=== PATIENT | male | born 1995 | race Hispanic/Latino ===

== ENCOUNTER 2018-12-25 09:43 | Emergency (ER) | payer OTHER ==
[~2018-12-25] VITALS: Ht 175.3 cm; Wt 71.6 kg
[2018-12-25] MEDS ORDERED: IBUPROFEN 800 MG TAB PO ONE (10:15)
[2018-12-25] MEDS ORDERED: ACETAMINOPHEN 325 MG TAB PO ONE (10:15)
[2018-12-25 10:45] LABS: INFLUENZA A AMPLIFICATION NEGATIVE (NEGATIVE); INFLUENZA B AMPLIFICATION NEGATIVE (NEGATIVE)
[2018-12-25] MEDS ORDERED: AUGM875T28 PO (11:12)
[2018-12-25] MEDS ORDERED: AUGMENTIN 875 MG TAB PO ONE (11:15)
[2018-12-25 11:21] VITALS: BP 118/65
== END 2018-12-25 11:27 | disposition home or self-care (01) ==
LOC: M ED 09:43
DX: J02.9 Acute pharyngitis, unspecified (principal)

== ENCOUNTER 2019-10-05 04:58 | Emergency (ER) | payer OTHER ==
[~2019-10-05] VITALS: Ht 175.3 cm; Wt 70.4 kg
[~2019-10-05 04:58] MED LIST: AUGM875T28 PO
[2019-10-05] MEDS ORDERED: ACETAMINOPHEN 325 MG TAB PO ONE (06:45)
[2019-10-05 07:06] LABS: HEMATOCRIT 44.6 % (42.0-52.0); HEMOGLOBIN 15.1 g/dl (13.5-17.5); MEAN CORPUSCULAR HEMOGLOBIN 29.5 pg (27.0-33.0); MEAN CORPUSCULAR HGB CONC 33.9 g/dl (32.0-36.5); MEAN CORPUSCULAR VOLUME 87.1 fl (80.0-96.0); PLATELET COUNT, AUTOMATED 219 10^3/uL (150-450); RED BLOOD COUNT 5.12 10^6/uL (4.30-6.10); WHITE BLOOD COUNT 14.9 10^3/uL (4.0-10.0)
--- NOTE | 2019-10-05 07:26 | REP ---
PA and lateral chest: There are no comparisons. The lung shipley are clear. The cardiac size is normal. The rio, mediastinum, and skeletal structures are unremarkable. Impression: Negative PA and lateral chest. Electronically Signed by Ezequiel Arias MD 10/05/2019 07:18 A
[2019-10-05 07:31] LABS: ALT/SGPT 24 U/L (12-78); BILIRUBIN,TOTAL 1.5 MG/DL (0.2-1.0); BLOOD UREA NITROGEN 12 MG/DL (7-18); CALCIUM LEVEL 8.6 MG/DL (8.5-10.1); CARBON DIOXIDE LEVEL 25 MEQ/L (21-32); CHLORIDE LEVEL 105 MEQ/L (98-107); CREATININE FOR GFR 1.18 MG/DL (0.70-1.30); GLOMERULAR FILTRATION RATE > 60.0 (>60); GLUCOSE, FASTING 92 MG/DL (70-100); POTASSIUM SERUM 4.1 MEQ/L (3.5-5.1); SODIUM LEVEL 138 MEQ/L (136-145)
[2019-10-05 07:32] LABS: ALBUMIN 4.1 GM/DL (3.2-5.2); TOTAL PROTEIN 7.4 GM/DL (6.4-8.2)
[2019-10-05 07:50] LABS: INFLUENZA A AMPLIFICATION NEGATIVE (NEGATIVE); INFLUENZA B AMPLIFICATION NEGATIVE (NEGATIVE)
[2019-10-05] MEDS ORDERED: CLEO300C2 PO (08:46)
[2019-10-05 09:01] VITALS: BP 113/59
== END 2019-10-05 09:06 | disposition home or self-care (01) ==
LOC: M ED 04:58
DX: J03.90 Acute tonsillitis, unspecified (principal)

== ENCOUNTER 2020-01-25 04:15 | Emergency (ER) | payer OTHER ==
[~2020-01-25] VITALS: Ht 177.8 cm; Wt 74.0 kg
[~2020-01-25 04:15] MED LIST changes: +CLEO300C2 PO
[2020-01-25 04:16] VITALS: BP 127/74
[2020-01-25] MEDS ORDERED: ACETAMINOPHEN TAB 650MG DOSE (2X325MG) PO ONE (05:00)
--- NOTE | 2020-01-25 05:22 | REP ---
Clinical: Chest pain . Comparison: 10/05/2019 . Findings: The mediastinum and cardiac silhouette are stable and within normal limits for portable technique. The lung shipley are clear without acute consolidation, effusion, or pneumothorax. Skeletal structures are intact. Impression: No acute cardiopulmonary process appreciated. Electronically Signed by Felix Doherty MD 01/25/2020 05:13 A
[2020-01-25] MEDS ORDERED: AMOX500C PO (05:44)
[2020-01-25] MEDS ORDERED: AMOXICILLIN 500 MG CAP PO ONE (05:45)
== END 2020-01-25 05:56 | disposition home or self-care (01) ==
LOC: M ED 04:15
DX: J03.90 Acute tonsillitis, unspecified (principal); Z87.828 Personal history of other (healed) physical injury and trauma; F17.210 Nicotine dependence, cigarettes, uncomplicated

== ENCOUNTER → 2020-03-28 | Emergency (ER) | payer OTHER ==
[~2020-03-28] MED LIST changes: +AMOX500C PO
== END | disposition left against medical advice (07) ==
LOC: M ED 23:49
DX: Z53.21 Procedure and treatment not carried out due to patient leaving prior to being seen by health care provider (principal)

== ENCOUNTER 2020-09-16 19:11 | Emergency (ER) | payer OTHER ==
[~2020-09-16] VITALS: Ht 177.8 cm; Wt 74.3 kg
[2020-09-16] MEDS ORDERED: CELE100C PO (19:21)
--- OUTSIDE RECORDS SUMMARY | 2020-09-16 19:21 | CCD ---
Author Author [facility] Organization [facility] Address Unknown Phone Unavailable Care Team Providers Care Deputy Register Of Deeds Name Role Phone Ozzie BOND MD Unavailable Unavailable Ozzie BOND MD Unavailable Unavailable Ozzie BOND MD Unavailable Unavailable Ozzie BOND MD Unavailable Unavailable Ozzie BOND MD Unavailable Unavailable Ozzie BOND MD Unavailable Unavailable Ozzie BOND MD Unavailable Unavailable Re-disclosure Warning The records that you are about to access may contain information from federally-assisted alcohol or drug abuse programs. If such information is present, then the following federally mandated warning applies: This information has been disclosed to you from records protected by federal confidentiality rules (42 CFR part 2). The federal rules prohibit you from making any further disclosure of this information unless further disclosure is expressly permitted by the written consent of the person to whom it pertains or as otherwise permitted by 42 CFR part 2. A general authorization for the release of medical or other information is NOT sufficient for this purpose. The Federal rules restrict any use of the information to criminally investigate or prosecute any alcohol or drug abuse patient.The records that you are about to access may contain highly sensitive health information, the redisclosure of which is protected by Article 27-F of the [facility] Public Health law. If you continue you may have access to information: Regarding HIV / AIDS; Provided by facilities licensed or operated by the [facility] Office of Mental Health; or Provided by the [facility] Office for People With Developmental Disabilities. If such information is present, then the following [facility] mandated warning applies: This information has been disclosed to you from confidential records which are protected by state law. State law prohibits you from making any further disclosure of this information without the specific written consent of the person to whom it pertains, or as otherwise permitted by law. Any unauthorized further disclosure in violation of state law may result in a fine or care home sentence or both. A general authorization for the release of medical or other information is NOT sufficient authorization for further disc losure. Allergies and Adverse Reactions Type Description Substance Reaction Status Data Source(s ) Drug Class NO KNOWN ALLERGIES NO KNOWN ALLERGIES [facility] Encounters Encounter Providers Location Date Indications Data Source(s ) Emergency Attender: TRAV BOND MD 07A-ERMADULT 2018 12:00:00 AM EST - 08/13/2019 07:07:00 AM EST Acute pharyngitis, unspecified [facility] Acute pharyngitis, unspecified Patient discharged. Medications Medication Brand Name Start Date Product Form Dose Route Admi nistrative Instructions Pharmacy Instructions Status Indications Reaction Description Data Source(s) sodium chloride 0.9 % bolus 2,000 mL 1282-7044-58 08/13/2019 05:45: 00 AM EST 2000 mL Intravenous completed 2,000 mL , Intravenous, Once, 08/13/19 at 0545, For 1 dose [facility] Medication administered onsite Amoxicillin 250 MG Oral Capsule amoxicillin (AMOXIL) c apsule 500 mg amoxicillin (AMOXIL) capsule 500 mg 08/13/2019 05:15:00 AM EST 500 mg Oral completed 500 mg, Oral, Once, 08/13/19 at 0515 , For 1 dose [facility] Medication administered onsite Ibuprofen 600 MG Oral Tablet ibuprofen (ADVIL,MOTRIN) tablet 600 mg ibuprofen (ADVIL,MOTRIN) tablet 600 mg 08/13/2019 05:15:00 AM EST 600 mg Oral completed 600 mg, Oral, Once, 08/13/19 at 0515, For 1 dose
Take with food.
[facility] Medication administered onsite Amoxicillin 500 MG Oral Capsule Amoxicillin 500 MG Ora l Capsule (AMOXIL) Amoxicillin 500 MG Oral Capsule (AMOXIL) 08/13/2019 12:00:00 AM EST 500 mg Oral active Take 1 capsule by [facility] Two Times Daily for 10 days [facility] Insurance Providers Payer name Policy type / Coverage type Policy ID Covered libertarian ID Covered libertarian's relationship to win Policy Win Plan Information [facility] ACTIVE DUTY [id number] [facility] [id number] Self [id number] [facility] [id number] Self [id number] Problems, Conditions, and Diagnoses Code Display Name Description Problem Type Effective Dates Data Source(s) J02.9 Acute pharyngitis, unspecified Acute pharyngitis, unsp ecified Diagnosis 08/13/2019 03:11:59 AM [facility] fever fever Diagnosis 08/13/2019 03:11:59 AM [facility] Surgeries/Procedures Procedure Description Date Indications Data Source(s) HETEROPHILE ANTIBODIES SCREEN MONONUCLEOSIS SCREEN STAT 08/13/2019 6:04 AM EST 08/13/2019 11:04:00 AM [facility] BLOOD COUNT COMPLETE AUTO&AUTO DIFRNTL WBC COUNT CBC AND DIFFER ENTIAL STAT 08/13/2019 6:04 AM EST 08/13/2019 11:04:00 AM [facility] BASIC METABOLIC PANEL CALCIUM TOTAL BASIC METABOLIC PANEL STAT 08/13/2019 6:04 AM EST 08/13/2019 11:04:00 AM [facility] RAPID STREP RAPID STREP STAT 08/13/2019 5:08 AM EST 08/13/2019 10:08:00 AM [facility] Results ID Date Data Source [id number] 08/16/2019 12:33:17 PM [facility] Name Value Range Interpretation Code Description Data Dayana rce(s) Supporting Document(s) ED Provider Note [facility] [id number] lbm [file] ENVIRONMENTAL CONFLICT [id number] [file] [id number] ID Date Data Source [id number] 08/13/2019 06:41:23 AM [facility] Name Value Range Interpretation Code Description Data Dayana rce(s) Supporting Document(s) Leukocytes [#/volume] in Blood by Automated count 13.3 10*3/uL 4-10 H [facility] Erythrocytes [#/volume] in Blood by Automated count 5.24 10*6/uL 4.6- 6.1 [facility] Hemoglobin [Mass/volume] in Blood 15.4 g/dL 13.5-18 [facility] Hematocrit [Volume Fraction] of Blood by Automated count 45.9 % 4 1-53 [facility] Erythrocyte mean corpuscular volume [Entitic volume] by Auto mated count 87.6 fL 80-96 [facility] Erythrocyte mean corpuscular hemoglobin [Entitic mass] by Automated count 29.5 pg 27-33 [facility] Erythrocyte mean corpuscular hemoglobin concentration [Mass/volume] by Automated count 33.6 g/dL [facility].0-[facility] width [Ratio] by Automated count 13.7 % 11.5-14.5 [facility] Platelets [#/volume] in Blood by Automated count 231 10*3/uL 150-400 [facility] Differential cell count method - Blood [facility] Neutrophils/100 leukocytes in Blood by Automated count 77 % [facility] Lymphocytes/100 leukocytes in Blood by Automated count 11 % [facility] Monocytes/100 leukocytes in Blood by Automated count 11 % [facility] Eosinophils/100 leukocytes in Blood by Automated count 0 % [facility] Basophils/100 leukocytes in Blood by Automated count 1 % [facility] Neutrophils [#/volume] in Blood by Automated count 10.23 10*3/uL 1.8- 7.0 [facility] Lymphocytes [#/volume] in Blood by Automated count 1.50 10*3/uL 1.2-4 .0 [facility] Monocytes [#/volume] in Blood by Automated count 1.50 10*3/uL 0-0.8 H [facility] Eosinophils [#/volume] in Blood by Automated count 0.03 10*3/uL 0-0.5 [facility] Basophils [#/volume] in Blood by Automated count 0.07 10*3/uL 0-0.2 [facility] Nucleated erythrocytes/100 leukocytes [Ratio] in Blood by Automated count 0 /100{WBCs} 0-0 [facility] ID Date Data Source [id number] 08/13/2019 06:45:37 AM [facility] Name Value Range Interpretation Code Description Data Dayana rce(s) Supporting Document(s) Heterophile Ab [Presence] in Serum Negative [facility] ID Date Data Source [id number] 08/13/2019 06:52:50 AM [facility] Name Value Range Interpretation Code Description Data Dayana rce(s) Supporting Document(s) Bicarbonate [Moles/volume] in Serum 24 mmol/L 22-29 [facility] Chloride [Moles/volume] in Serum or Plasma 98 mmol/L 98-107 [facility] Creatinine [Mass/volume] in Serum or Plasma 0.97 mg/dL 0.70-1.20 [facility] Glucose [Mass/volume] in Serum or Plasma 102 mg/dL 70-140 [facility] Potassium [Moles/volume] in Serum or Plasma 4.2 mmol/L 3.4-5.1 [facility] Sodium [Moles/volume] in Serum or Plasma 135 mmol/L 136-145 L [facility] Urea nitrogen [Mass/volume] in Serum or Plasma 12 mg/dL 6-20 [facility] Anion gap 3 in Serum or Plasma 13 mmol/L 8-15 [facility] Osmolality of Serum or Plasma by calculation 280 mosm/kg 275-300 [facility] Creatinine/Urea nitrogen [Mass Ratio] in Serum or Plasma 13 [facility] Calcium [Mass/volume] in Serum or Plasma 9.3 mg/dL 8.6-10.0 [facility] Glomerular filtration rate/1.73 sq M pre dicted among non-blacks [Volume Rate/Area] in Serum or Plasma by Creatinine-based formula (MDRD) >6 0 [facility] Glomerular filtration rate/1.73 sq M pre dicted among blacks [Volume Rate/Area] in Serum or Plasma by Creatinine-based formula (MDRD) >60 [facility] ID Date Data Source [id number] 08/15/2019 11:09:54 AM [facility] Name Value Range Interpretation Code Description Data Dayana rce(s) Supporting Document(s) Kel Ferrari virus capsid IgG Ab [Units/volume] in Ser um by Immunoassay 4.09 {ISR} <0.91 H [facility] Positive Kel Ferrari virus nuclear IgG Ab [Units/volume] in Se rum by Immunoassay 3.12 {ISR} <0.91 H [facility] Positive Kel Ferrari virus capsid IgM Ab [Units/volume] in Ser um by Immunoassay 0.09 {ISR} <0.91 [facility] Negative ID Date Data Source [id number] 08/15/2019 08:31:11 AM [facility] Service Cmnt XXX-Imp : Microorganism XXX Cult : No beta hemolytic Streptococcus group A isolated Name Value Range Interpretation Code Description Data Dayana rce(s) Supporting Document(s) ID Date Data Source [id number] 08/13/2019 05:33:31 AM [facility] Service Cmnt XXX-Imp : Microorganism XXX Cult : Negative for Streptococcus Group A antigen by immunochromatographic assay, throat culture pending. Name Value Range Interpretation Code Description Data Dayana rce(s) Supporting Document(s) Procedure Social History Code Duration Value Status Description Data Source(s ) Smoking 08/13/2019 12:00:00 AM EST Unknown if ever smoked comp leted Unknown if ever smoked [facility] Vital Signs ID Date Data Source [id number] 08/18/2019 10:10:45 AM [facility] Name Value Range Interpretation Code Description Data Source(s) WEIGHT RECORDED 161 lb 161 lb [facility] Body height Measured 70 in 70 in [facility] Patient Treatment Plan of Care Planned Activity Planned Date Details Description Data Source (s) Amoxicillin 500 MG Oral Capsule 08/13/2019 12:00:00 AM [facility]
--- OUTSIDE RECORDS SUMMARY | 2020-09-16 20:48 | CCD ---
Author Author [facility] Organization [facility] Address Unknown Phone Unavailable Care Team Providers Care Projector Operator Name Role Phone Ozzie BOND MD Unavailable [...] is protected by Article 27-F of the [facility] Public Health law. If you continue you may have access to information: Regarding HIV / AIDS; Provided by facilities licensed or operated by the [facility] Office of Mental Health; or Provided by the [facility] Office for People With Developmental Disabilities. If such information is present, then the following [facility] mandated warning applies: This information has been [...] law may result in a fine or residential sentence or both. A general authorization for the release of medical or other information is NOT sufficient authorization for further disc losure. Allergies and Adverse Reactions Type Description Substance Reaction Status Data Source(s ) Drug Class NO KNOWN ALLERGIES NO KNOWN ALLERGIES [facility] Encounters Encounter Providers Location Date Indications Data Source(s ) Emergency Attender: TRAV BOND MD 07A-ERMADULT 2018 12:00:00 AM EST - 08/13/2019 07:07:00 AM EST Acute pharyngitis, unspecified [facility] Acute pharyngitis, unspecified Patient discharged. Medications Medication Brand Name Start Date Product Form Dose Route Admi nistrative Instructions Pharmacy Instructions Status Indications Reaction Description Data Source(s) sodium chloride 0.9 % bolus 2,000 mL [id number] 08/13/2019 05:45: 00 AM EST 2000 mL Intravenous completed 2,000 mL , Intravenous, Once, 08/13/19 at 0545, For 1 dose [facility] Medication administered onsite Amoxicillin 250 MG Oral Capsule amoxicillin (AMOXIL) c apsule 500 mg amoxicillin (AMOXIL) capsule 500 mg 08/13/2019 05:15:00 AM EST 500 mg Oral completed 500 mg, Oral, Once, 08/13/19 at 0515 , For 1 dose [facility] Medication administered onsite Ibuprofen 600 MG Oral Tablet ibuprofen (ADVIL,MOTRIN) tablet 600 mg ibuprofen (ADVIL,MOTRIN) tablet 600 mg 08/13/2019 05:15:00 AM EST 600 mg Oral completed 600 mg, Oral, Once, 08/13/19 at 0515, For 1 dose
Take with food.
[facility] Medication administered onsite Amoxicillin 500 MG Oral Capsule Amoxicillin 500 MG Ora l Capsule (AMOXIL) Amoxicillin 500 MG Oral Capsule (AMOXIL) 08/13/2019 12:00:00 AM EST 500 mg Oral active Take 1 capsule by [facility] Two Times Daily for 10 days [facility] Insurance Providers Payer name Policy type / Coverage type Policy ID Covered alliance party ID Covered alliance party's relationship to win Policy Win Plan Information [facility] ACTIVE DUTY [id number] [facility] [id number] Self [id number] [facility] [id number] Self [id number] Problems, Conditions, and Diagnoses Code Display Name Description Problem Type Effective Dates Data Source(s) J02.9 Acute pharyngitis, unspecified Acute pharyngitis, unsp ecified Diagnosis 08/13/2019 03:11:59 AM [facility] fever fever Diagnosis 08/13/2019 03:11:59 AM [facility] Surgeries/Procedures Procedure Description Date Indications Data Source(s) HETEROPHILE ANTIBODIES SCREEN MONONUCLEOSIS SCREEN STAT 08/13/2019 6:04 AM EST 08/13/2019 11:04:00 AM [facility] BLOOD COUNT COMPLETE AUTO&AUTO DIFRNTL WBC COUNT CBC AND DIFFER ENTIAL STAT 08/13/2019 6:04 AM EST 08/13/2019 11:04:00 AM [facility] BASIC METABOLIC PANEL CALCIUM TOTAL BASIC METABOLIC PANEL STAT 08/13/2019 6:04 AM EST 08/13/2019 11:04:00 AM [facility] RAPID STREP RAPID STREP STAT 08/13/2019 5:08 AM EST 08/13/2019 10:08:00 AM [facility] Results ID Date Data Source [id number] 08/16/2019 12:33:17 PM [facility] Name Value Range Interpretation Code Description Data Dayana rce(s) Supporting Document(s) ED Provider Note [facility] [id number] lbm [file] MEDICAL BILLING [id number] [file] [place] [file] [id number] ID Date Data Source [id number] 08/13/2019 06:41:23 AM EST [facility] Name Value Range Interpretation Code Description Data Dayana rce(s) Supporting Document(s) Leukocytes [#/volume] in Blood by Automated count 13.3 10*3/uL 4-10 H [facility] Erythrocytes [#/volume] in Blood by Automated count 5.24 10*6/uL 4.6- 6.1 [facility] Hemoglobin [Mass/volume] in Blood 15.4 g/dL 13.5-18 [facility] Hematocrit [Volume Fraction] of Blood by Automated count 45.9 % 4 1-53 [facility] Erythrocyte mean corpuscular volume [Entitic volume] by Auto mated count 87.6 fL 80-96 [facility] Erythrocyte mean corpuscular hemoglobin [Entitic mass] by Automated count 29.5 pg 27-33 [facility] Erythrocyte mean corpuscular hemoglobin concentration [Mass/volume] by Automated count 33.6 g/dL 32.0-36.[facility] width [Ratio] by Automated count 13.7 % 11.5-14.5 [facility] Platelets [#/volume] in Blood by Automated count 231 10*3/uL 150-400 [facility] Differential cell count method - Blood [facility] Neutrophils/100 leukocytes in Blood by Automated count 77 % [facility] Lymphocytes/100 leukocytes in Blood by Automated count 11 % [facility] Monocytes/100 leukocytes in Blood by Automated count 11 % [facility] Eosinophils/100 leukocytes in Blood by Automated count 0 % [facility] Basophils/100 leukocytes in Blood by Automated count 1 % [facility] Neutrophils [#/volume] in Blood by Automated count 10.23 10*3/uL 1.8- 7.0 [facility] Lymphocytes [#/volume] in Blood by Automated count 1.50 10*3/uL 1.2-4 .0 [facility] Monocytes [#/volume] in Blood by Automated count 1.50 10*3/uL 0-0.8 H [facility] Eosinophils [#/volume] in Blood by Automated count 0.03 10*3/uL 0-0.5 [facility] Basophils [#/volume] in Blood by Automated count 0.07 10*3/uL 0-0.2 [facility] Nucleated erythrocytes/100 leukocytes [Ratio] in Blood by Automated count 0 /100{WBCs} 0-0 [facility] ID Date Data Source [id number] 08/13/2019 06:45:37 AM [facility] Name Value Range Interpretation Code Description Data Dayana rce(s) Supporting Document(s) Heterophile Ab [Presence] in Serum Negative [facility] ID Date Data Source [id number] 08/13/2019 06:52:50 AM [facility] Name Value Range Interpretation Code Description Data Dayana rce(s) Supporting Document(s) Bicarbonate [Moles/volume] in Serum 24 mmol/L 22-29 [facility] Chloride [Moles/volume] in Serum or Plasma 98 mmol/L 98-107 [facility] Creatinine [Mass/volume] in Serum or Plasma 0.97 mg/dL 0.70-1.20 [facility] Glucose [Mass/volume] in Serum or Plasma 102 mg/dL 70-140 [facility] Potassium [Moles/volume] in Serum or Plasma 4.2 mmol/L 3.4-5.1 [facility] Sodium [Moles/volume] in Serum or Plasma 135 mmol/L 136-145 L [facility] Urea nitrogen [Mass/volume] in Serum or Plasma 12 mg/dL 6-20 [facility] Anion gap 3 in Serum or Plasma 13 mmol/L 8-15 [facility] Osmolality of Serum or Plasma by calculation 280 mosm/kg 275-300 [facility] Creatinine/Urea nitrogen [Mass Ratio] in Serum or Plasma 13 [facility] Calcium [Mass/volume] in Serum or Plasma 9.3 mg/dL 8.6-10.0 [facility] Glomerular filtration rate/1.73 sq M pre dicted among non-blacks [Volume Rate/Area] in Serum or Plasma by Creatinine-based formula (MDRD) >6 0 [facility] Glomerular filtration rate/1.73 sq M pre dicted among blacks [Volume Rate/Area] in Serum or Plasma by Creatinine-based formula (MDRD) >60 [facility] ID Date Data Source [id number] 08/15/2019 11:09:54 AM [facility] Name Value Range Interpretation Code Description Data Dayana rce(s) Supporting Document(s) Kel Ferrari virus capsid IgG Ab [Units/volume] in Ser um by Immunoassay 4.09 {ISR} <0.91 H [facility] Positive Kel Ferrari virus nuclear IgG Ab [Units/volume] in Se rum by Immunoassay 3.12 {ISR} <0.91 H [facility] Positive Kel Ferrari virus capsid IgM Ab [Units/volume] in Ser um by Immunoassay 0.09 {ISR} <0.91 [facility] Negative ID Date Data Source [id number] 08/15/2019 08:31:11 AM [facility] Service Cmnt XXX-Imp : Microorganism XXX Cult : No beta hemolytic Streptococcus group A isolated Name Value Range Interpretation Code Description Data Dayana rce(s) Supporting Document(s) ID Date Data Source [id number] 08/13/2019 05:33:31 AM [facility] Service Cmnt XXX-Imp : Microorganism XXX Cult : Negative for Streptococcus Group A antigen by immunochromatographic assay, throat culture pending. Name Value Range Interpretation Code Description Data Dayana rce(s) Supporting Document(s) Procedure Social History Code Duration Value Status Description Data Source(s ) Smoking 08/13/2019 12:00:00 AM EST Unknown if ever smoked comp leted Unknown if ever smoked [facility] Vital Signs ID Date Data Source [id number] 08/18/2019 10:10:45 AM [facility] Name Value Range Interpretation Code Description Data Source(s) WEIGHT RECORDED [address] [facility] Body height Measured 70 in 70 in [facility] Patient Treatment Plan of Care Planned Activity Planned Date Details Description Data Source (s) Amoxicillin 500 MG Oral Capsule 08/13/2019 12:00:00 AM [facility]
[2020-09-16 20:56] LABS: BASO # 0.1 10^3/uL (0.0-0.2); BASO % 0.6 % (0.0-1.0); EOS # 0.1 10^3/uL (0.0-0.5); EOS % 0.8 % (0.0-3.0); HEMATOCRIT 46.2 % (42.0-52.0); HEMOGLOBIN 15.2 g/dl (13.5-17.5); LYMPH # 1.9 10^3/uL (1.5-5.0); LYMPH % 22.4 % (24.0-44.0); MEAN CORPUSCULAR HEMOGLOBIN 28.5 pg (27.0-33.0); MEAN CORPUSCULAR HGB CONC 32.9 g/dl (32.0-36.5); MEAN CORPUSCULAR VOLUME 86.5 fl (80.0-96.0); MONO # 0.6 10^3/uL (0.0-0.8); MONO % 7.4 % (0.0-5.0); NEUTROPHILS # 5.9 10^3/uL (1.5-8.5); NEUTROPHILS % 68.4 % (36.0-66.0); PLATELET COUNT, AUTOMATED 269 10^3/uL (150-450); RED BLOOD COUNT 5.34 10^6/uL (4.30-6.10); WHITE BLOOD COUNT 8.6 10^3/uL (4.0-10.0)
[2020-09-16 21:26] LABS: BILIRUBIN,DIRECT 0.1 MG/DL (0.0-0.2); BILIRUBIN,TOTAL 0.4 MG/DL (0.2-1.0); TOTAL PROTEIN 7.5 GM/DL (6.4-8.2)
--- NOTE | 2020-09-16 22:05 | REPVR ---
PROCEDURE INFORMATION: Exam: CT Abdomen And Pelvis Without Contrast Exam date and time: 09/16/2020 9:12 PM Age: 25 years old Clinical indication: Abdominal pain; Prior surgery; Additional info: Llq pain TECHNIQUE: Imaging protocol: Computed tomography of the abdomen and pelvis without contrast. Radiation optimization: All CT scans at this facility use at least one of these dose optimization techniques: automated exposure control; mA and/or kV adjustment per patient size (includes targeted exams where dose is matched to clinical indication); or iterative reconstruction. COMPARISON: No relevant prior studies available. FINDINGS: Liver: Normal. No mass. Gallbladder and bile ducts: Normal. No calcified stones. No ductal dilation. Pancreas: Normal. No ductal dilation. Spleen: Normal. No splenomegaly. Adrenal glands: Normal. No mass. Kidneys and ureters: Normal. No hydronephrosis. Stomach and bowel: There is a 16 mm lobulated fat lobule along the distal descending colon with surrounding soft tissue stranding, typical of epiploic appendagitis (image 99, series 201). Colon and small bowel are otherwise unremarkable. Appendix: No evidence of appendicitis. Intraperitoneal space: Unremarkable. No free air. No significant fluid collection. Vasculature: Unremarkable. No abdominal aortic aneurysm. Lymph nodes: Unremarkable. No enlarged lymph nodes. Urinary bladder: Unremarkable as visualized. Reproductive: Unremarkable as visualized. Bones/joints: Unremarkable. No acute fracture. Soft tissues: Unremarkable. IMPRESSION: Epiplicoic aggendagitis of the distal descending colon. Electronically signed by: Darius Caldera On 09/16/2020 22:05:05 PM
[2020-09-16] MEDS ORDERED: COLA100C5 PO (22:37)
[2020-09-16] MEDS ORDERED: IBUP-1022 PO (22:37)
[2020-09-16 22:53] VITALS: BP 119/70
[2020-09-16 22:58] LABS: RSV AMPLIFICATION NEGATIVE (NEGATIVE)
== END 2020-09-16 22:57 | disposition home or self-care (01) ==
LOC: M ED 19:11
DX: K38.8 Other specified diseases of appendix (principal); F17.200 Nicotine dependence, unspecified, uncomplicated; Z79.899 Other long term (current) drug therapy

== ENCOUNTER → 2020-12-06 | Outpatient (CLI) | payer OTHER ==
[~2020-12-06] MED LIST changes: +CELE100C PO; +COLA100C5 PO; +IBUP-1022 PO
--- NOTE | 2020-12-10 16:44 | SLEEPCENT ---
NOCTURNAL POLYSOMNOGRAPHY DATE: 12/06/2020 ORDERED BY: Benigno Barron M.D. Nocturnal polysomnography was performed for evaluation of sleep physiology in this patient with a history of excessive somnolence and morning headaches. 6 hours and 54 minutes of data were reviewed. There were 383 minutes of sleep identified. Sleep latency was normal at 9 minutes. REM latency was normal at 69 minutes. Sleep architecture was good with three REM cycles. Overall sleep efficiency was 93.8%. The electrocardiogram showed a sinus rhythm with an average heart rate of 52 beats per minute; rate range 40 to 76. EEG showed normal waveforms for wake and sleep. There were only 7 respiratory events identified of 10 seconds in duration or greater for an apnea-hypopnea index within normal limits at 1.1. The events that were seen were associated with REM. Snoring was, however, noted over the course of the study. Arousals from respiratory events occurred when arousals from snoring were included occurred 0.9 times per hour. There was some minor limb activity. No trains of events. Limb movement arousal index of 2 and snoring was noted over the entire study. IMPRESSION: Normal nocturnal polysomnography with snoring.
== END ==
LOC: M SLEEP 20:00
PROVIDERS: ATTEND Internal Medicine Pulmonary Disease
DX: R40.0 Somnolence (principal)

== ENCOUNTER → 2021-01-01 | Outpatient (CLI) | payer OTHER ==
[~2021-01-01] MED LIST changes: +HYDR50CA2 PO; +OXCA150T21 PO
--- NOTE | 2021-01-04 10:36 | SLEEPMSLT ---
DATE: 01/01/2021 ORDERED BY: Benigno Barron MD Nocturnal polysomnography was performed followed by multiple sleep latency testing for evaluation of this patient with excessive somnolence, fatigue, and snoring. For the night portion of the study, 7 hours and 26 minutes of data were reviewed. There were 398.5 minutes of sleep identified. Sleep latency was normal at 20.5 minutes. REM latency was normal at 80.5 minutes. Sleep architecture was good. There were three REM cycles noted. Overall sleep efficiency was 90.4%. The electrocardiogram showed a sinus rhythm with an average heart rate of 56 beats per minute, rate range 40-70. EEG showed normal waveforms for wake and sleep stages, there were no focal events appreciated. There was only one respiratory event identified of 10 seconds in duration or greater for an apnea hypopnea index of 0.3. Snoring was appreciated over the course of the study. Respiratory related arousals occurred only 1.2 times per hour and there were no significant oxygen desaturations below 90%. There was some activity in the limb leads, one train of 30 events with limb movement arousal index within normal limits at 3.3. Following night testing, multiple sleep latency testing was performed and nap opportunities were offered at 2 hour intervals. Sleep was appreciated on four of the four nap opportunities. The patient's mean sleep latency was 3.3 minutes. REM sleep was appreciated on two of the four nap opportunities. IMPRESSIONS: Normal nocturnal polysomnography with pathologic sleep latency of 3.3 minutes and two sleep onset REM periods is supportive of a diagnosis of narcolepsy. COMMENT: Urine toxicology studies were not available at the time of this dictation.
== END ==
LOC: M SLEEP 20:00
PROVIDERS: ATTEND Internal Medicine Pulmonary Disease
DX: R06.83 Snoring (principal); R40.0 Somnolence

== ENCOUNTER 2021-01-09 14:50 | Emergency (ER) | payer OTHER ==
[~2021-01-09] VITALS: Ht 177.8 cm; Wt 68.2 kg
[~2021-01-09 14:50] MED LIST changes: -HYDR50CA2 PO; -OXCA150T21 PO
[2021-01-09] MEDS ORDERED: HYDR50CA2 PO (16:14)
[2021-01-09] MEDS ORDERED: OXCA150T21 PO (16:14)
--- NOTE | 2021-01-09 16:45 | REP ---
INDICATION: pain with inhalation. COMPARISON: None. TECHNIQUE: PA and lateral FINDINGS: The superior mediastinal structures are midline. The cardiac silhouette is unremarkable in size, shape, and position. The diaphragmatic surfaces of the lungs are regular, and the costophrenic angles are clear. The pulmonary shipley are clear. The imaged osseous structures are intact. IMPRESSION: There is no acute cardiopulmonary disease. <Electronically signed by Scotty Rosenberg > 01/09/21 [id number]
[2021-01-09] MEDS ORDERED: NS 1,000 ML IV ONE (16:55)
[2021-01-09 17:23] LABS: BASO # 0.1 10^3/uL (0.0-0.2); BASO % 0.7 % (0.0-1.0); EOS # 0.1 10^3/uL (0.0-0.5); HEMATOCRIT 41.7 % (42.0-52.0); HEMOGLOBIN 14.2 g/dl (13.5-17.5); LYMPH # 1.5 10^3/uL (1.5-5.0); LYMPH % 17.6 % (24.0-44.0); MEAN CORPUSCULAR HEMOGLOBIN 29.2 pg (27.0-33.0); MEAN CORPUSCULAR HGB CONC 34.1 g/dl (32.0-36.5); MEAN CORPUSCULAR VOLUME 85.8 fl (80.0-96.0); MONO # 0.8 10^3/uL (0.0-0.8); MONO % 9.4 % (2.0-8.0); NEUTROPHILS # 5.9 10^3/uL (1.5-8.5); NEUTROPHILS % 70.8 % (36.0-66.0); PLATELET COUNT, AUTOMATED 237 10^3/uL (150-450); RED BLOOD COUNT 4.86 10^6/uL (4.30-6.10); WHITE BLOOD COUNT 8.4 10^3/uL (4.0-10.0)
[2021-01-09 17:47] LABS: AMPHETAMINES LEVEL URINE NEGATIVE (NEGATIVE); BARBITURATES URINE NEGATIVE (NEGATIVE); BENZODIAZEPINES URINE NEGATIVE (NEGATIVE); CANNABINOIDS URINE NEGATIVE (NEGATIVE); COCAINE METABOLITE URINE NEGATIVE (NEGATIVE); METHADONE URINE NEGATIVE (NEGATIVE); OPIATES URINE NEGATIVE (NEGATIVE); PHENCYCLIDINE URINE NEGATIVE (NEGATIVE)
[2021-01-09 17:51] LABS: ALT/SGPT 15 U/L (12-78); BILIRUBIN,DIRECT 0.3 MG/DL (0.0-0.2); BILIRUBIN,TOTAL 0.7 MG/DL (0.2-1.0); CK-MB VALUE MASS < 1.0 NG/ML (<3.6); CPK CREATINE PHOSPHOKINASE 75 U/L (39-308); LIPASE 66 U/L (73-393); MB/CK RELATIVE INDEX 1.33 (< OR =4); TROPONIN I < 0.02 NG/ML (< 0.10)
--- NOTE | 2021-01-09 18:21 | REPVR ---
PROCEDURE INFORMATION: Exam: CT Abdomen And Pelvis Without Contrast Exam date and time: 01/09/2021 6:01 PM Age: 25 years old Clinical indication: Abdominal pain; Additional info: Bilat flank pain, elevated CR 3.0 TECHNIQUE: Imaging protocol: Computed tomography of the abdomen and pelvis without contrast. Radiation optimization: All CT scans at this facility use at least one of these dose optimization techniques: automated exposure control; mA and/or kV adjustment per patient size (includes targeted exams where dose is matched to clinical indication); or iterative reconstruction. COMPARISON: CT ABD PELVIS W/O CONTRAST 09/16/2020 9:11 PM FINDINGS: Lungs: No suspicious mass or airspace process in the visualized lung bases. Liver: Noncontrast liver shows no obvious lesion. Gallbladder and bile ducts: Gallbladder is present and shows no evidence of gallstone. Pancreas: Noncontrast pancreas shows no obvious mass or adjacent fluid. Spleen: Noncontrast spleen shows no obvious focal deformity. Adrenal glands: Adrenal glands are normal in appearance. Kidneys and ureters: Noncontrast kidneys and ureters show no stone or obstructive change. Stomach and bowel: No evidence of small bowel obstruction. Terminal ileum has normal appearance. No evidence of acute diverticulitis. Appendix: Normal caliber appendix is identified, with no adjacent inflammation. Intraperitoneal space: No pneumoperitoneum. Vasculature: No aortic aneurysm. Lymph nodes: No enlarged lymph nodes. Urinary bladder: Urinary bladder appears normal. Reproductive: No overt enlargement of the prostate gland. Bones/joints: Bony structures show no acute fracture or destructive process. Soft tissues: No effacement of normal fat planes in the ischiorectal fossa. No concerning focal abnormality of the extra-abdominal and pelvic soft tissues. Other findings: Limited evaluation without enteric or IV contrast. IMPRESSION: No evidence of renal stone or obstruction. No explanation for flank pain. Electronically signed by: Iván Fofana On 01/09/2021 18:20:58 PM
[2021-01-09 19:04] VITALS: BP 125/76
--- NOTE | 2021-01-10 02:45 | ECGEPIP ---
[facility] - ED Test Date: 2021-01-09 Pat Name: ELENA WALLACE Department: Room: - Gender: Male Irrigator Overhead: URSULA : 1995 Requested By: MELISSA Styles PA-C Order Number: [id number] Reading MD: Moisés Israel Measurements Intervals [place] Rate: 53 P: 62 PA: 134 QRS: 14 QRSD: 90 T: 37 QT: 390 QTc: 365 Interpretive Statements Sinus bradycardia NO PRIORS FOR COMPARISON Electronically Signed on 01-10-2021 2:44:51 EDT by Moisés Israel
== END 2021-01-09 19:06 | disposition home or self-care (01) ==
LOC: M ED 14:50
DX: R10.9 Unspecified abdominal pain (principal); R11.0 Nausea; R19.7 Diarrhea, unspecified; R79.89 Other specified abnormal findings of blood chemistry; R94.31 Abnormal electrocardiogram [ECG] [EKG]; F31.9 Bipolar disorder, unspecified; Z79.899 Other long term (current) drug therapy

== ENCOUNTER → 2021-02-05 | Outpatient (REF) ==
[~2021-02-05] MED LIST changes: +HYDR50CA2 PO; +OXCA150T21 PO
--- NOTE | 2021-02-05 13:49 | REPPI ---
INDICATION: ARTHRITIS, PULMONARY CONDITION COMPARISON: 01/09/2021 TECHNIQUE: PA and lateral. FINDINGS: The mediastinum and cardiac silhouette are normal. The lung shipley are clear and without acute consolidation, effusion, or pneumothorax. The skeletal structures are intact and normal. IMPRESSION: No acute cardiopulmonary process. <Electronically signed by Felix Doherty > 02/05/21 [id number]
--- NOTE | 2021-02-05 14:17 | REPPI ---
INDICATION: ARTHRITIS, PULMONARY CONDITION COMPARISON: None. TECHNIQUE: AP, lateral, and sunrise views of the right and left knee. FINDINGS: The osseous structures and joint spaces are intact and normal. There is no evidence for acute fracture or dislocation. No joint effusion is appreciated. Surrounding soft tissues are unremarkable. No subcutaneous emphysema or radiodense foreign body. IMPRESSION: Normal bilateral knee examination. No acute fracture or dislocation. <Electronically signed by Felix Doherty > 02/05/21 [id number]
== END ==
LOC: M PLAIMG 10:15
PROVIDERS: ATTEND Internal Medicine
DX: M25.562 Pain in left knee (principal); M25.561 Pain in right knee

== ENCOUNTER 2022-12-12 03:00 | Inpatient (IN) | payer OTHER ==
[~2022-12-12] VITALS: Ht 177.8 cm; Wt 68.4 kg
[2022-12-12] MEDS ORDERED: QUET1TAB17 PO (03:19)
[2022-12-12] MEDS ORDERED: LAMO200T3 PO (03:19)
[2022-12-12 03:48] LABS: HEMATOCRIT 46.8 % (42.0-52.0); HEMOGLOBIN 15.9 g/dl (13.5-17.5); MEAN CORPUSCULAR HEMOGLOBIN 29.9 pg (27.0-33.0); MEAN CORPUSCULAR VOLUME 88.1 fl (80.0-96.0); PLATELET COUNT, AUTOMATED 196 10^3/uL (150-450); RED BLOOD COUNT 5.31 10^6/uL (4.30-6.10); WHITE BLOOD COUNT 11.1 10^3/uL (4.0-10.0)
[2022-12-12 04:16] LABS: LIPASE 23 U/L (12-53)
[2022-12-12 04:19] LABS: ALBUMIN 4.1 G/DL (3.2-5.2); ALKALINE PHOSPHATASE 105 U/L (46-116); ALT/SGPT 25 U/L (7.0-40); AST/SGOT 14 U/L (<34); BILIRUBIN,DIRECT 0.3 MG/DL (<0.4); BILIRUBIN,TOTAL 0.7 MG/DL (0.3-1.2); BLOOD UREA NITROGEN 12 MG/DL (9-23); CALCIUM LEVEL 9.2 MG/DL (8.5-10.1); CARBON DIOXIDE LEVEL 25 MMOL/L (20-31); CHLORIDE LEVEL 103 MMOL/L (98-107); CREATININE FOR GFR 0.98 MG/DL (0.70-1.30); GLOMERULAR FILTRATION RATE > 60.0 (>60); GLUCOSE, FASTING 100 MG/DL (60-100); SODIUM LEVEL 138 MMOL/L (136-145)
[2022-12-12 04:35] LABS: EOSINOPHILS 3 % (0-3); LYMPHOCYTES 11 % (16-44); METAMYELOCYTES 1 % (0-0); MONOCYTES 11 % (0-5); NEUTROPHILS 66 % (28-66)
[2022-12-12 04:36] LABS: NUCLEATED RED BLOOD CELL 0 % (0-0); PLATELET ESTIMATE NORMAL (NORMAL)
[2022-12-12] MEDS ORDERED: ONDANSETRON 4MG ORAL DISINTEGRATING TAB PO ONE (04:55)
[2022-12-12 05:44] LABS: GC DNA AMPLIFICATION NEGATIVE (NEGATIVE)
[2022-12-12] MEDS ORDERED: NS 1,910 ML in IV 1 EA IV ONE (06:55)
[2022-12-12] MEDS ORDERED: PIPERACILLIN/TAZOBACTAM SOD 4.5 GM in D5W MINI-BAG PLUS 50 ML IV ONE (06:55)
[2022-12-12] MEDS ORDERED: ISOVUE-370 76% 100ML VIAL As Ordered ONE (08:06)
[2022-12-12] MEDS ORDERED: KETOROLAC 30 MG/ML 1ML VIAL As Ordered ONE (13:44)
[2022-12-12] MEDS ORDERED: KETOROLAC 30 MG/ML 1ML VIAL IV ONE (13:45)
[2022-12-12] MEDS ORDERED: AZITHROMYCIN 250MG TABLET PO STA (13:49)
[2022-12-12] MEDS: NS 1,000 ML IV SCH ×2 (13:52→20:35)
[2022-12-12] MEDS ORDERED: ACETAMINOPHEN 500 MG TAB PO PRN (14:15)
[2022-12-12 16:00] VITALS: BP 117/78
[2022-12-12] MEDS: PROMETHAZINE 25MG/ML 1ML VIAL IV PRN (16:10)
[2022-12-12] MEDS: MORPHINE 4 MG/ML 1ML VIAL IV PRN ×2 (16:11→23:36)
[2022-12-12 20:19] VITALS: BP 118/76
[2022-12-12] MEDS: KETOROLAC 30 MG/ML 1ML VIAL IV SCH (20:35)
[2022-12-13] MEDS: KETOROLAC 30 MG/ML 1ML VIAL IV SCH ×4 (02:41→20:37)
[2022-12-13] MEDS: NS 1,000 ML IV SCH ×4 (02:42→22:33)
[2022-12-13 05:35] VITALS: BP 115/70
[2022-12-13] MEDS ORDERED: IBUP-1720 PO (07:41)
[2022-12-13] MEDS ORDERED: HOME MED LIST COMPLETE! XX SCH (07:45)
[2022-12-13 08:26] LABS: HEMATOCRIT 37.4 % (42.0-52.0); MEAN CORPUSCULAR HEMOGLOBIN 30.1 pg (27.0-33.0); MEAN CORPUSCULAR HGB CONC 33.7 g/dl (32.0-36.5); MEAN CORPUSCULAR VOLUME 89.5 fl (80.0-96.0); PLATELET COUNT, AUTOMATED 166 10^3/uL (150-450); RED BLOOD COUNT 4.18 10^6/uL (4.30-6.10); WHITE BLOOD COUNT 8.8 10^3/uL (4.0-10.0)
[2022-12-13 08:38] LABS: HEMOGLOBIN 12.6 g/dl (13.5-17.5)
[2022-12-13 08:59] LABS: BLOOD UREA NITROGEN 6 MG/DL (9-23); CALCIUM LEVEL 8.1 MG/DL (8.5-10.1); CARBON DIOXIDE LEVEL 29 MMOL/L (20-31); CHLORIDE LEVEL 106 MMOL/L (98-107); CREATININE FOR GFR 1.01 MG/DL (0.70-1.30); GLOMERULAR FILTRATION RATE > 60.0 (>60); GLUCOSE, FASTING 89 MG/DL (60-100); MAGNESIUM LEVEL 1.7 MG/DL (1.8-2.4); POTASSIUM SERUM 4.3 MMOL/L (3.5-5.1); SODIUM LEVEL 138 MMOL/L (136-145)
[2022-12-13] MEDS ORDERED: OXcarbazepine 150 MG TAB PO SCH (09:00)
[2022-12-13 09:26] LABS: ATYPICAL LYMPH 1 % (0-5); EOSINOPHILS 1 % (0-3); LYMPHOCYTES 20 % (16-44); MONOCYTES 17 % (0-5); NEUTROPHILS 37 % (28-66)
[2022-12-13 09:27] LABS: PLATELET ESTIMATE NORMAL (NORMAL); SMUDGE CELLS 1+
[2022-12-13] MEDS: AZITHROMYCIN 250MG TABLET PO SCH (09:51)
[2022-12-13] MEDS: lamoTRIgine 100MG TAB PO SCH (09:54)
[2022-12-13] MEDS ORDERED: SIMETHICONE 80MG CHEW TAB PO PRN (10:20)
[2022-12-13] MEDS: MAGNESIUM OXIDE 400MG TAB (MAG-OX) PO SCH ×2 (10:40→20:37)
[2022-12-13] MEDS: OXcarbazepine 300 MG TAB PO SCH (10:44)
[2022-12-13] MEDS ORDERED: MAG SULF 1GM/100ML (MAG RUN) 1 GM in IV 1 EA IV ONE (11:00)
[2022-12-13] MEDS: PROMETHAZINE 25MG/ML 1ML VIAL IV PRN (12:25)
[2022-12-13] MEDS: MORPHINE 4 MG/ML 1ML VIAL IV PRN ×2 (12:26→22:33)
[2022-12-13 14:00] VITALS: BP 110/60
[2022-12-13 20:44] VITALS: BP 116/71
[2022-12-13] MEDS ORDERED: QUEtiapine FUMARATE 25 MG TAB PO SCH (21:00)
[2022-12-14] MEDS: KETOROLAC 30 MG/ML 1ML VIAL IV SCH (01:02)
[2022-12-14] MEDS: MORPHINE 4 MG/ML 1ML VIAL IV PRN (02:56)
[2022-12-14] MEDS: NS 1,000 ML IV SCH (05:14)
[2022-12-14 05:17] VITALS: BP 109/72
[2022-12-14] MEDS ORDERED: MORPHINE 30 MG TAB **MSIR PO PRN (06:05)
[2022-12-14 06:34] LABS: BASO % 0.5 % (0.0-1.0); EOS # 0.1 10^3/uL (0.0-0.5); EOS % 1.6 % (0.0-3.0); HEMOGLOBIN 11.9 g/dl (13.5-17.5); MEAN CORPUSCULAR HEMOGLOBIN 30.4 pg (27.0-33.0); MEAN CORPUSCULAR VOLUME 89.3 fl (80.0-96.0); MONO # 0.7 10^3/uL (0.0-0.8); MONO % 10.5 % (2.0-8.0); NEUTROPHILS # 3.6 10^3/uL (1.5-8.5); NEUTROPHILS % 55.6 % (36.0-66.0); PLATELET COUNT, AUTOMATED 166 10^3/uL (150-450); RED BLOOD COUNT 3.92 10^6/uL (4.30-6.10); WHITE BLOOD COUNT 6.4 10^3/uL (4.0-10.0)
[2022-12-14 06:54] LABS: BLOOD UREA NITROGEN < 5 MG/DL (9-23); CALCIUM LEVEL 7.7 MG/DL (8.5-10.1); CARBON DIOXIDE LEVEL 28 MMOL/L (20-31); CHLORIDE LEVEL 107 MMOL/L (98-107); CREATININE FOR GFR 0.84 MG/DL (0.70-1.30); GLOMERULAR FILTRATION RATE > 60.0 (>60); GLUCOSE, FASTING 88 MG/DL (60-100); MAGNESIUM LEVEL 1.9 MG/DL (1.8-2.4); POTASSIUM SERUM 3.8 MMOL/L (3.5-5.1); SODIUM LEVEL 139 MMOL/L (136-145)
[2022-12-14] MEDS ORDERED: AZIT-12 PO (07:14)
[2022-12-14] MEDS ORDERED: MS C15TA8 PO (07:14)
[2022-12-14] MEDS ORDERED: SIME80TA16 PO ×2 (07:14→12:16)
[2022-12-14] MEDS ORDERED: MORPHINE 30 MG TAB **MSIR PO ONE (08:00)
[2022-12-14] MEDS ORDERED: NS 1,000 ML IV ONE (08:00)
[2022-12-14] MEDS: AZITHROMYCIN 250MG TABLET PO SCH (08:33)
[2022-12-14] MEDS: lamoTRIgine 100MG TAB PO SCH (08:33)
[2022-12-14] MEDS: OXcarbazepine 300 MG TAB PO SCH (08:34)
[2022-12-14] MEDS: MAGNESIUM OXIDE 400MG TAB (MAG-OX) PO SCH (08:34)
[2022-12-14] MEDS ORDERED: POTASSIUM CHLORIDE 10MEQ SR TABLET PO ONE (09:00)
[2022-12-14] MEDS ORDERED: MAG SULF 1GM/100ML (MAG RUN) 1 GM in IV 1 EA IV ONE (09:00)
[2022-12-14] MEDS ORDERED: RIZATRIPTAN MLT 10 MG TAB PO PRN (10:50)
[2022-12-14] MEDS ORDERED: NS 500 ML IV ONE (10:50)
[2022-12-14] MEDS ORDERED: HYDROMORPHONE HCL 0.5 MG/ 0.5 ML SYRINGE IV ONE (10:50)
[2022-12-14] MEDS ORDERED: METOCLOPRAMIDE INJ 10MG/2ML VIAL IV ONE (11:00)
[2022-12-14] MEDS ORDERED: KETOROLAC 30 MG/ML 1ML VIAL IV ONE (11:00)
[2022-12-14] MEDS ORDERED: MORPHINE 30 MG TAB **MSIR PO SCH (12:00)
[2022-12-14] MEDS ORDERED: BACI1CAP PO ×3 (12:16→13:21)
[2022-12-14] MEDS ORDERED: OXYC1TAB23 PO (12:16)
[2022-12-14] MEDS ORDERED: AZIT500T5 PO ×3 (12:16→13:20)
[2022-12-14] MEDS ORDERED: MAGN400T2 PO (12:16)
[2022-12-14] MEDS ORDERED: SIME1CAP3 PO (12:26)
[2022-12-14] MEDS ORDERED: MAGN500T12 PO (12:26)
[2022-12-14] MEDS ORDERED: MORP15TA2 PO (12:29)
[2022-12-14 14:00] VITALS: BP 126/83
== END 2022-12-14 14:31 | disposition home or self-care (01) | DRG 373 ==
LOC: M ED 03:00 → M ED INP 13:41 → ENRESERV 14:52 → M MSPAV 15:47
PROVIDERS: ADMIT General Practice; ATTEND General Practice
DX: A04.5 Campylobacter enteritis (principal); A04.4 Other intestinal Escherichia coli infections; E83.42 Hypomagnesemia; R51.9 Headache, unspecified; Z79.899 Other long term (current) drug therapy

== ENCOUNTER 2022-12-16 10:18 | Inpatient (IN) | payer OTHER ==
[~2022-12-16] VITALS: Ht 177.8 cm; Wt 72.6 kg
[~2022-12-16 10:18] MED LIST changes: +AZIT-12 PO; +AZIT500T5 PO; +BACI1CAP PO; +IBUP-1720 PO; +LAMO200T3 PO; +MAGN400T2 PO; +MAGN500T12 PO; +MORP15TA2 PO; +MS C15TA8 PO; +OXYC1TAB23 PO; +QUET1TAB17 PO; +SIME1CAP3 PO; +SIME80TA16 PO
[2022-12-16] MEDS ORDERED: NS 1,000 ML IV ONE ×3 (10:30→15:55)
[2022-12-16 10:42] LABS: HEMATOCRIT 39.7 % (42.0-52.0); HEMOGLOBIN 13.3 g/dl (13.5-17.5); MEAN CORPUSCULAR HEMOGLOBIN 29.9 pg (27.0-33.0); MEAN CORPUSCULAR HGB CONC 33.5 g/dl (32.0-36.5); MEAN CORPUSCULAR VOLUME 89.2 fl (80.0-96.0); PLATELET COUNT, AUTOMATED 312 10^3/uL (150-450); RED BLOOD COUNT 4.45 10^6/uL (4.30-6.10); WHITE BLOOD COUNT 16.8 10^3/uL (4.0-10.0)
[2022-12-16 11:14] LABS: ETHYL ALCOHOL (ETHANOL) < 0.003 % (0.000-0.010)
[2022-12-16 11:15] LABS: ACETAMINOPHEN LEVEL 4.9 UG/ML (10.0-20.0); SALICYLATE LEVEL < 3.0 MG/DL (<30)
[2022-12-16 11:16] LABS: CPK CREATINE PHOSPHOKINASE 79 U/L (46-171); THYROID STIMULATING HORMONE 0.743 uIU/ML (0.55-4.78)
[2022-12-16 11:21] LABS: ALBUMIN 3.4 G/DL (3.2-5.2); ALKALINE PHOSPHATASE 186 U/L (46-116); ALT/SGPT 93 U/L (7.0-40); AST/SGOT 62 U/L (<34); BILIRUBIN,DIRECT 0.1 MG/DL (<0.4); BILIRUBIN,TOTAL 0.3 MG/DL (0.3-1.2); BLOOD UREA NITROGEN 8 MG/DL (9-23); CALCIUM LEVEL 8.5 MG/DL (8.5-10.1); CARBON DIOXIDE LEVEL 28 MMOL/L (20-31); CHLORIDE LEVEL 103 MMOL/L (98-107); CREATININE FOR GFR 1.29 MG/DL (0.70-1.30); GLOMERULAR FILTRATION RATE > 60.0 (>60); GLUCOSE, FASTING 180 MG/DL (60-100); POTASSIUM SERUM 3.8 MMOL/L (3.5-5.1); SODIUM LEVEL 139 MMOL/L (136-145); TOTAL PROTEIN 6.2 G/DL (5.7-8.2)
[2022-12-16 11:26] LABS: ATYPICAL LYMPH 3 % (0-5); LYMPHOCYTES 7 % (16-44); METAMYELOCYTES 1 % (0-0); MONOCYTES 9 % (0-5); NEUTROPHILS 63 % (28-66)
[2022-12-16 11:27] LABS: PLATELET ESTIMATE NORMAL (NORMAL)
[2022-12-16 11:42] VITALS: O2SAT 92
[2022-12-16 11:48] LABS: AMPHETAMINES LEVEL URINE NEGATIVE (NEGATIVE); BARBITURATES URINE NEGATIVE (NEGATIVE); BENZODIAZEPINES URINE NEGATIVE (NEGATIVE); CANNABINOIDS URINE NEGATIVE (NEGATIVE); COCAINE METABOLITE URINE NEGATIVE (NEGATIVE); METHADONE URINE NEGATIVE (NEGATIVE); PHENCYCLIDINE URINE NEGATIVE (NEGATIVE)
[2022-12-16 11:50] LABS: OPIATES URINE POSITIVE (NEGATIVE)
[2022-12-16] MEDS ORDERED: cefTRIAXone SOD 2 GM in D5W MINI-BAG PLUS 50 ML IV ONE (11:50)
[2022-12-16 12:08] LABS: RSV AMPLIFICATION NEGATIVE (NEGATIVE)
[2022-12-16] MEDS ORDERED: ISOVUE-370 76% 100ML VIAL As Ordered ONE (13:24)
[2022-12-16] MEDS ORDERED: AZIT500T5 PO (17:10)
[2022-12-16] MEDS ORDERED: MAGN500T12 PO (17:10)
[2022-12-16] MEDS ORDERED: MORP15TA2 PO (17:10)
[2022-12-16] MEDS ORDERED: BACI1CAP4 PO (17:10)
[2022-12-16] MEDS ORDERED: SIME180C25 PO (17:10)
[2022-12-16] MEDS ORDERED: HOME MED LIST COMPLETE! XX SCH (17:15)
[2022-12-16] MEDS ORDERED: AZITHROMYCIN 250MG TABLET PO SCH (21:00)
[2022-12-16] MEDS ORDERED: QUEtiapine FUMARATE 25 MG TAB PO SCH (21:00)
[2022-12-16 21:01] VITALS: BP 133/89
[2022-12-16 23:13] VITALS: BP 113/73
[2022-12-17 04:00] VITALS: BP 115/78
[2022-12-17 06:23] LABS: BASO # 0.1 10^3/uL (0.0-0.2); BASO % 0.9 % (0.0-1.0); EOS # 0.1 10^3/uL (0.0-0.5); EOS % 0.8 % (0.0-3.0); HEMATOCRIT 38.4 % (42.0-52.0); HEMOGLOBIN 12.3 g/dl (13.5-17.5); LYMPH # 2.2 10^3/uL (1.5-5.0); LYMPH % 22.1 % (24.0-44.0); MEAN CORPUSCULAR HEMOGLOBIN 29.1 pg (27.0-33.0); MONO % 9.5 % (2.0-8.0); NEUTROPHILS # 6.3 10^3/uL (1.5-8.5); NEUTROPHILS % 63.3 % (36.0-66.0); PLATELET COUNT, AUTOMATED 282 10^3/uL (150-450); RED BLOOD COUNT 4.22 10^6/uL (4.30-6.10)
[2022-12-17 06:58] LABS: BLOOD UREA NITROGEN 7 MG/DL (9-23); CALCIUM LEVEL 8.8 MG/DL (8.5-10.1); CARBON DIOXIDE LEVEL 28 MMOL/L (20-31); CHLORIDE LEVEL 107 MMOL/L (98-107); CREATININE FOR GFR 1.06 MG/DL (0.70-1.30); GLOMERULAR FILTRATION RATE > 60.0 (>60); GLUCOSE, FASTING 87 MG/DL (60-100); POTASSIUM SERUM 5.5 MMOL/L (3.5-5.1); SODIUM LEVEL 141 MMOL/L (136-145)
[2022-12-17] MEDS ORDERED: ACETAMINOPHEN TAB 650MG DOSE (2X325MG) PO ONE (07:00)
[2022-12-17 08:23] VITALS: BP 143/91
[2022-12-17] MEDS ORDERED: OXcarbazepine 150 MG TAB PO SCH (09:00)
[2022-12-17] MEDS ORDERED: lamoTRIgine 100MG TAB PO SCH (09:00)
[2022-12-17] MEDS ORDERED: OXcarbazepine 300 MG TAB PO SCH (09:00)
[2022-12-17 12:38] VITALS: BP 131/93
[2022-12-17] MEDS ORDERED: cefTRIAXone SOD 1 GM in D5W MINI-BAG PLUS 50 ML IV SCH (13:00)
[2022-12-17] MEDS ORDERED: CEFD300CAP PO (14:28)
[2022-12-17] MEDS ORDERED: AZIT-12 PO (14:28)
[2022-12-18] MEDS ORDERED: OXcarbazepine 300 MG TAB PO SCH (09:00)
== END 2022-12-17 15:15 | DRG 917 ==
LOC: M ED 10:18 → EDBD 10:18 → M ED INP 16:19 → ENRESERV 17:44 → M PCU 20:58
PROVIDERS: ADMIT Internal Medicine Nephrology; ATTEND Internal Medicine Nephrology
DX: T40.2X2A Poisoning by other opioids, intentional self-harm, initial encounter (principal); J69.0 Pneumonitis due to inhalation of food and vomit; G92.8 Other toxic encephalopathy; N17.9 Acute kidney failure, unspecified; F31.81 Bipolar II disorder; R45.851 Suicidal ideations; I95.9 Hypotension, unspecified; E78.00 Pure hypercholesterolemia, unspecified; F43.10 Post-traumatic stress disorder, unspecified; K52.9 Noninfective gastroenteritis and colitis, unspecified; F41.9 Anxiety disorder, unspecified; Z79.899 Other long term (current) drug therapy

== ENCOUNTER 2022-12-17 13:49 | Inpatient (IN) | payer OTHER ==
[~2022-12-17] VITALS: Ht 180.3 cm; Wt 70.0 kg
[~2022-12-17 13:49] MED LIST changes: +BACI1CAP4 PO; +SIME180C25 PO
[2022-12-17] MEDS ORDERED: AZIT-12 PO (14:28)
[2022-12-17] MEDS ORDERED: CEFD300CAP PO (14:28)
[2022-12-17] MEDS ORDERED: diphenhydrAMINE 25MG CAP PO PRN (14:30)
[2022-12-17] MEDS ORDERED: ACETAMINOPHEN TAB 650MG DOSE (2X325MG) PO PRN (14:30)
[2022-12-17] MEDS ORDERED: MOM 30ML SUSPENSION UDC PO PRN (14:30)
[2022-12-17] MEDS ORDERED: MAALOX 30 ML SUSP *UDC PO PRN (14:30)
[2022-12-17 14:56] VITALS: BP 136/94
[2022-12-17] MEDS: traZODone 50 MG TAB PO PRN (21:14)
[2022-12-18 06:43] VITALS: BP 126/75
[2022-12-18] MEDS: lamoTRIgine 100MG TAB PO SCH (08:26)
[2022-12-18] MEDS: OXcarbazepine 150 MG TAB PO SCH (08:26)
[2022-12-18] MEDS ORDERED: IBUPROFEN 800 MG TAB PO ONE (16:30)
[2022-12-18 18:43] LABS: BILIRUBIN,DIRECT 0.1 MG/DL (<0.4); BILIRUBIN,TOTAL 0.5 MG/DL (0.3-1.2); TOTAL PROTEIN 5.6 G/DL (5.7-8.2)
[2022-12-18] MEDS: AZITHROMYCIN 250MG TABLET PO SCH (21:33)
[2022-12-18] MEDS: CEFDINIR 300 MG CAP (OMNICEF) PO SCH (21:33)
[2022-12-18] MEDS: SENOKOT S TAB PO SCH (21:33)
[2022-12-18] MEDS: PANTOPRAZOLE 40MG TAB (PROTONIX) PO SCH (21:33)
[2022-12-18] MEDS: traZODone 50 MG TAB PO PRN (22:52)
[2022-12-19 06:44] VITALS: BP 123/68
[2022-12-19] MEDS: lamoTRIgine 100MG TAB PO SCH (08:05)
[2022-12-19] MEDS: SENOKOT S TAB PO SCH ×2 (08:05→21:00)
[2022-12-19] MEDS: CEFDINIR 300 MG CAP (OMNICEF) PO SCH ×2 (08:06→21:35)
[2022-12-19] MEDS: OXcarbazepine 150 MG TAB PO SCH (08:06)
[2022-12-19] MEDS: IBUPROFEN 400MG TAB PO PRN ×2 (10:18→21:35)
[2022-12-19 17:33] VITALS: BP 136/83
[2022-12-19] MEDS: AZITHROMYCIN 250MG TABLET PO SCH (21:35)
[2022-12-19] MEDS: PANTOPRAZOLE 40MG TAB (PROTONIX) PO SCH (21:35)
[2022-12-20] MEDS: traZODone 50 MG TAB PO PRN (00:06)
[2022-12-20 05:54] VITALS: BP 119/67
[2022-12-20] MEDS: lamoTRIgine 100MG TAB PO SCH (08:47)
[2022-12-20] MEDS: OXcarbazepine 150 MG TAB PO SCH (08:48)
[2022-12-20] MEDS: CEFDINIR 300 MG CAP (OMNICEF) PO SCH ×2 (08:48→21:37)
[2022-12-20] MEDS: SENOKOT S TAB PO SCH ×2 (08:49→21:00)
[2022-12-20 18:00] VITALS: BP 123/61
[2022-12-20] MEDS: PANTOPRAZOLE 40MG TAB (PROTONIX) PO SCH (21:37)
[2022-12-20] MEDS: AZITHROMYCIN 250MG TABLET PO SCH (21:37)
[2022-12-21] MEDS: traZODone 50 MG TAB PO PRN ×2 (00:09→23:03)
[2022-12-21 06:44] VITALS: BP 110/59
[2022-12-21] MEDS: SENOKOT S TAB PO SCH ×2 (09:00→20:39)
[2022-12-21] MEDS: CEFDINIR 300 MG CAP (OMNICEF) PO SCH (09:12)
[2022-12-21] MEDS: OXcarbazepine 150 MG TAB PO SCH (09:12)
[2022-12-21] MEDS: lamoTRIgine 100MG TAB PO SCH (09:12)
[2022-12-21] MEDS ORDERED: LAMO200T3 PO (18:52)
[2022-12-21] MEDS ORDERED: TRAZ-252 PO (18:52)
[2022-12-21] MEDS ORDERED: PANT40TA29 PO (18:52)
[2022-12-21] MEDS ORDERED: OXCA150T21 PO (18:52)
[2022-12-21] MEDS: PANTOPRAZOLE 40MG TAB (PROTONIX) PO SCH (20:39)
[2022-12-21] MEDS: IBUPROFEN 400MG TAB PO PRN (20:59)
[2022-12-22 06:36] VITALS: BP 136/67
[2022-12-22] MEDS: lamoTRIgine 100MG TAB PO SCH (08:00)
[2022-12-22] MEDS: OXcarbazepine 150 MG TAB PO SCH (08:00)
[2022-12-22] MEDS: SENOKOT S TAB PO SCH (08:01)
== END 2022-12-22 11:18 | disposition home or self-care (01) | DRG 885 ==
LOC: M PSY 15:20
PROVIDERS: ADMIT Psychiatry & Neurology Psychiatry; ATTEND Psychiatry & Neurology Psychiatry
DX: F31.81 Bipolar II disorder (principal); F43.10 Post-traumatic stress disorder, unspecified; Z79.899 Other long term (current) drug therapy